=== PATIENT | male | born 1970 | race Caucasian/White ===

== ENCOUNTER 2017-10-30 19:48 | Emergency (ER) | payer BC ==
--- NOTE | 2017-10-30 19:54 | PDOC ---
History of Present Illness - History of Present Illness Initial Comments: 10/30/17 20:12 Patient is a 47 M, with no significant PMHx, who presents with mid-epigastric discomfort since yesterday. Patient states that yesterday after eating a nicole cheese steak from a deli, he felt bloated and describes his pain as a stabbing sensation, non-radiating in the mid-epigastric area. He states that he had 1 episode of diarrhea yesterday and 2 episodes today. His diarrhea is yellowish and liquidy but not watery. He states that after he has a BM his abdominal pain is lessened and relaxing also helps to relieve the pain. He states the pain sometimes returns after he eats. He denies experiencing this type of pain before. He admits to some nausea but denies vomiting. He also endorses dysuria. He states he did not take anything for the abdominl pain or the diarrhea. No recent travel. Denies recent fever, chills. PAST MEDICAL HISTORY: no significant history PAST SURGICAL HISTORY: no significant history FAMILY HISTORY: denies FH of gallstones, kidney stones, or cardiac issues. SOCIAL HISTORY: Pt lives with family and is employed. MEDICATIONS: reviewed ALLERGIES: As per nursing notes ROS General: No fevers or chills, no weakness, no weight loss HEENT: No change in vision. No sore throat, No ear pain Cardiovascular: No chest pain or shortness of breath Respiratory:No cough, or wheezing. Gastrointestinal: +abdominal pain, +nausea, no vomiting, +diarrhea, no constipation, No rectal bleeding Genitourinary: +dysuria, no hematuria, or frequency Musculoskeletal: No joint or muscle pain or swelling Neurologic: No headache, vertigo, dizziness or loss of consciousness Psychiatric: No depression Skin: No rashes or easy bruising Endocrine: No increased thirst or abnormal weight change Allergic: No skin or latex allergy All other systems reviewed and normal PE General: Well-nourished well-developed individual, no acute distress HEENT: Throat: Normal, tonsils normal, no erythema or exudate Neck: Supple, no meningeal signs, no lymphadenopathy Eyes::Pupils equal reactive and round, extraocular motion intact Chest: Nontender to palpation Cardiac: S1-S2 normal, regular rate and rhythm, no murmurs rubs or gallops Respiratory: Lungs clear to auscultation bilateral Abdomen: Soft, nondistended, normal bowel sounds, mild epigastric tenderness to deep palpation. Extremities: Warm, dry, no cyanosis, clubbing, or edema Skin: No rashes Neuro: Alert and oriented x3, nonfocal exam, grossly intact, normal gait Psych: Normal mood and affect <Adelia Moreira - Last Filed: 10/30/17 20:19> - General History Source: Patient Exam Limitations: No Limitations - History of Present Illness Initial Comments: A portion of this note was documented by scribe services under my direction. I have reviewed the details of the note, within reason, and agree with the documentation. The case summary and management plan written by me. 10/30/17 21:40 This is a 47-year-old male who comes in complaining of the upper abdominal pain with some diarrhea. Patient denies any nausea or vomiting. Patient on my evaluation was tender epigastric and little right upper quadrant tenderness. There seemed to be an association between Sunday and his diet and the pain. So patient had an ultrasound and workup was done. The ultrasound was negative for any acute pathology including stones or dilation of the ducts. The blood work was normal with a normal white count and no left shift. The chemistries were unremarkable. Patient told he again take some Imodium for antidiarrheal as it appears to be virus in nature rather than bacteria. Patient discharged home will follow-up with his primary care doctor as needed <Eileen Sullivan I - Last Filed: 10/30/17 21:44> - General Chief Complaint: Pain, Acute Stated Complaint: UPPER ABDOMINAL PAIN AFTER EATING Time Seen by Provider: 10/30/17 19:54 Past History <Adelia Moreira - Last Filed: 10/30/17 20:19> <Eileen Sullivan I - Last Filed: 10/30/17 21:44> - Past Medical History Allergies/Adverse Reactions: Allergies Allergy/AdvReac Type Severity Reaction Status Date / Time No Known Allergies Allergy Verified 10/30/17 19:50 Home Medications: Ambulatory Orders NK [No Known Home Medication] 10/30/17 Review of Systems - Review of Systems Comments:: 10/30/17 20:15 see HPI <Adelia Moreira - Last Filed: 10/30/17 20:19> *Physical Exam - Vital Signs Last Vital Signs Temp Pulse Resp BP Pulse Ox 98.3 F 72 16 134/60 98 10/30/17 19:52 10/30/17 19:52 10/30/17 19:52 10/30/17 19:52 10/30/17 19:52 - Physical Exam Comments: 10/30/17 20:15 see HPI <Adelia Moreira - Last Filed: 10/30/17 20:19> Heart Score/ECG Review - ECG Intrepretation Comment:: 10/30/17 20:20 Sinus rhythm with occasional premature ventricular complexes. Otherwise normal ECG. Vent rate 68 bpm <Adelia Moreira - Last Filed: 10/30/17 20:19> ED Treatment Course - LABORATORY CBC & Chemistry Diagram: 10/30/17 20:23 10/30/17 20:23 <Eileen Sullivan I - Last Filed: 10/30/17 21:44> *DC/Admit/Observation/Transfer - Attestations Scribe Attestion: 10/30/17 20:15 Documentation prepared by Adelia Moreira, acting as medical laboratory technician for Eileen Sullivan MD. <Adelia Moreira - Last Filed: 10/30/17 20:19> - Discharge Dispostion Decision to Admit order: No <Eileen Sullivan I - Last Filed: 10/30/17 21:44> Diagnosis at time of Disposition: Diarrhea Qualifiers: Diarrhea type: unspecified type Qualified Code(s): R19.7 - Diarrhea, unspecified - Discharge Dispostion Disposition: HOME Condition at time of disposition: Stable - Patient Instructions Additional Instructions: For the diarrhea he you can purchase some [id number] Imodium and take as directed on the box. For the discomfort in your upper abdomen to take an antacid such as Maalox or Tums. Return to the emergency department immediately with ANY new, persistent or worsening symptoms. Continue any medications as previously prescribed by your physician. You should follow up with your primary doctor as soon as possible regarding today's emergency department visit. . Please make sure your doctor reviews the results of your emergency evaluation. Thank you for coming to the Emergency Department today for your care. It was a pleasure to see you today. Please note that your evaluation is INCOMPLETE until you follow-up with your doctor.
[2017-10-30 19:58] VITALS: BP 134/60; PULSE 72; TEMP 98.3; BMI 25.0
[2017-10-30 20:37] LABS: HEMATOCRIT 45.2 % (35.4-49); HEMOGLOBIN 15.3 GM/dl (11.7-16.9); MCHC 33.8 g/dl (32.0-35.9); MEAN CELL VOLUME 85.8 fl (80-96); MEAN PLT VOLUME 10.4 fl (7.5-11.1); PLATELET COUNT 172 K/MM3 (134-434); RBC 5.26 M/mm3 (4.00-5.60); RDW 12.9 % (11.9-15.9); WHITE BLOOD COUNT 9.2 K/mm3 (4.0-10.8)
[2017-10-30 20:49] LABS: ALBUMIN 3.7 g/dl (3.5-5.0); ALK PHOS 56 U/L (32-92); ANION GAP 3 (8-16); BLOOD UREA NITROGEN 14 mg/dl (7-18); CALCIUM 8.6 mg/dl (8.4-10.2); CHLORIDE 103 mmol/L (98-107); CO2 28 mmol/L (22-28); CREATININE 0.9 mg/dl (0.6-1.3); GLUCOSE,RANDOM 93 mg/dl (74-106); POTASSIUM 3.7 mmol/L (3.5-5.1); SGOT/AST 23 U/L (10-42); SGPT/ALT 21 U/L (10-40); SODIUM 134 mmol/L (136-145)
[2017-10-30 20:59] LABS: BILIRUBIN,TOTAL 0.7 mg/dl (0.2-1.0)
[2017-10-30 21:08] LABS: URINE APPEARANCE Clear; URINE BILIRUBIN Negative (NEGATIVE); URINE GLUCOSE (UA) Negative (NEGATIVE); URINE KETONE Negative (NEGATIVE); URINE LEUK ESTERASE Negative (NEGATIVE); URINE NITRITE Negative (NEGATIVE); URINE PROTEIN Negative (NEGATIVE); URINE UROBILINOGEN 0.2 (0.2-1.0)
[2017-10-30 21:09] LABS: URINE COLOR YELLOW
[2017-10-30 21:29] LABS: URINE WBC 0-1 (0-2)
[2017-10-30 21:32] LABS: PLATELET ESTIMATE ADEQUATE
[2017-10-30] MEDS ORDERED: MAG HYDROX/AL HYDROX/SIMETH 30 ML UNIT-DOSE CUP PO ONE (21:43)
[2017-10-30] MEDS ORDERED: LOPERAMIDE HCL 2 MG CAPSULE PO ONE (21:43)
[2017-10-30] MEDS ORDERED: LOPERAMIDE HCL 2 MG CAPSULE ONE (21:58)
[2017-10-30] MEDS ORDERED: MAG HYDROX/AL HYDROX/SIMETH 30 ML UNIT-DOSE CUP ONE (21:58)
[2017-10-30 21:59] LABS: LIPASE 109 U/L (73-393)
--- NOTE | 2017-10-31 13:04 | EKG ---
Test Reason : Blood Pressure : / mmHG Vent. Rate : 068 BPM Atrial Rate : 068 BPM P-R Int : 160 ms QRS Dur : 092 ms QT Int : 418 ms P-R-T Axes : 062 056 031 degrees QTc Int : 444 ms SINUS RHYTHM WITH OCCASIONAL PREMATURE VENTRICULAR COMPLEXES OTHERWISE NORMAL ECG NO PREVIOUS ECGS AVAILABLE Confirmed by WILLIAMS REID MD ([id number]) on 10/31/2017 1:04:13 PM Referred By: Confirmed By:WILLIAMS REID MD
== END 2017-10-30 22:01 | disposition home or self-care (01) ==
LOC: FER 19:48
DX: R19.7 Diarrhea, unspecified (principal)
CPT/HCPCS: 36415; 76705-TC; 80053; 81003; 81015; 82550; 82553; 83690; 84484; 85025; 93005; 99282-25